=== PATIENT | female | born 1965 | race Caucasian/White ===

== ENCOUNTER 2024-10-10 11:53 | Outpatient (CLI) | payer BC, SELFPAY ==
--- NOTE | 2024-10-10 13:30 | W.ANESCHARGE ---
Anesthesia Charges Start Date/Time Anesthesia Start Date: 10/10/24 Anesthesia Start Time: 13:07 Stop Date/Time Anesthesia Stop Date: 10/10/24 Anesthesia Stop Time: 13:28
--- NOTE | 2024-10-10 13:50 | W.ANESCHARGE ---
Anesthesia Charges Start Date/Time Anesthesia Start Date: 10/10/24 Anesthesia Start Time: 13:07 Stop Date/Time Anesthesia Stop Date: 10/10/24 Anesthesia Stop Time: 13:28
== END 2024-10-10 11:54 | disposition home or self-care (01) ==
PROVIDERS: PCP Family Medicine; Visit Provider Internal Medicine Gastroenterology
DX: Z12.11 Encounter for screening for malignant neoplasm of colon (principal); Z86.0101 Personal history of adenomatous and serrated colon polyps
CPT/HCPCS: 00811; 00812; 45378; J2704